=== PATIENT | female | born 1990 | race Caucasian/White ===

== ENCOUNTER 2017-04-28 12:37 | Emergency (ER) | payer BC ==
[~2017-04-28 12:37] MED LIST: OMEPRAZOLE40 M1 PO; PERCOCET7.5 PO; ZOFRAN ODT4 MG/UDTAB PO
== END 2017-04-28 14:54 | disposition home or self-care (01) ==
LOC: SED 12:37
DX: O21.0 Mild hyperemesis gravidarum (principal); Z3A.08 8 weeks gestation of pregnancy
CPT/HCPCS: 36415; 96374; 99283; 99284; J2550